=== PATIENT | male | born 1975 ===

== ENCOUNTER 2019-12-10 12:07 | Inpatient (IN) | payer SELFPAY ==
[~2019-12-10] VITALS: Ht 172.7 cm; Wt 173.2 kg
[2019-12-10] MEDS ORDERED: LORazepam 2 MG/ML, 1ML IVPush PRN (12:30)
[2019-12-10] MEDS ORDERED: SODIUM CHLORIDE FLUSH 10ML SYR IVF ONE (12:30)
--- NOTE | 2019-12-10 12:39 | NUR ---
BIB [facility] WITH COMPAINTS OF BLE CRAMPING THAT COME AND GO AND START FROM HIS FOOT UP TO HIS GROIN. NO HX BLOOD CLOTS OR GOUT. PT ALSO BEGAN HAVING CP APPROX 0400 THIS AM. PT RECIEVED ASA 324 SHIFT SUPERVISOR MELTING, FENTANYL 100MCG. PT TO CARD MONITOR, BP, CONT PULSE OX. ERMD IN TO EVAL PT. ORDERS RECIVED. PT ST ON MONITOR, REPORTS DRINKING 3 OR MORE BEERS PER DAY, LAST DRINK YESTERDAY EVENING. PT APPEARS ANXIOUS, NO TREMORS NOTED. PT DENIES N/V
[2019-12-10] MEDS ORDERED: LORazepam 2 MG/ML, 1ML ONE (12:48)
[2019-12-10 12:52] LABS: BASOPHILS % (AUTO) 1 % (0-1); EOSINOPHILS % (AUTO) 1 % (1-7); LYMPHOCYTES % (AUTO) 20 % (22-44); MEAN CORPUSCULAR HEMOGLOBIN 31.1 pg (27.5-34.5); MEAN CORPUSCULAR HGB CONC 33.1 g/dL (33.2-36.2); MEAN PLATELET VOLUME 9.4 fL (7.4-10.4); MONOCYTES % (AUTO) 7 % (2-9); NEUTROPHILS % (AUTO) 71 % (42-75); PLATELET COUNT 188 x10^3/uL (130-400); RED BLOOD COUNT 4.92 x10^6/uL (4.38-5.82); RED CELL DISTRIBUTION WIDTH 14.1 % (9.4-14.8)
[2019-12-10 12:57] LABS: MD NO
[2019-12-10 13:06] LABS: ALANINE AMINOTRANSFERASE 70 U/L (12-78); ALBUMIN 3.6 g/dL (3.4-5.0); ANION GAP 7 mmol/L (5-15); CALCIUM 8.5 mg/dL (8.5-10.1); CHLORIDE 105 mmol/L (98-107)
[2019-12-10 13:10] LABS: ALKALINE PHOSPHATASE 71 U/L (45-117); CREATININE 0.77 mg/dL (0.7-1.3); TOTAL PROTEIN 7.1 g/dL (6.4-8.2); TROPONIN I < 0.015 ng/mL (0.000-0.045)
[2019-12-10 13:31] LABS: FREE T4 (FREE THYROXINE) 1.08 ng/dL (0.76-1.46)
[2019-12-10] MEDS ORDERED: SODIUM CHLORIDE 0.9% 1,000ML IVBOLUS ONE (14:00)
--- NOTE | 2019-12-10 14:37 | NUR ---
PT RESTING ON GURNEY, VSS, BOLUS INFUSING SLOWLY D/T PIV ACCESS ERMD UPDATED. NO NEEDS AT THIS TIME
--- NOTE | 2019-12-10 15:46 | NUR ---
ERMD IN TO UPDATE PT ON POC. VSS, ADDITIONAL IMAGING TO BE ORDERED. NO OTHER NEEDS
[2019-12-10] MEDS ORDERED: MORPHINE SULFATE 4 MG/ML, 1ML ONE (16:06)
[2019-12-10] MEDS: MORPHINE SULFATE 4 MG/ML, 1ML IVPush PRN (16:09)
--- NOTE | 2019-12-10 16:10 | NUR ---
PT TO IMAGING AT THIS TIME
[2019-12-10] MEDS ORDERED: POTASSIUM CHLORIDE 20 MEQ TAB.ER.PRT PO ONE (17:30)
[2019-12-10] MEDS ORDERED: ENALAPRILAT 1.25 MG/ML, 2ML IVPush PRN (17:30)
[2019-12-10] MEDS ORDERED: ONDANSETRON 2MG/ML, 2ML IVPush PRN (17:30)
[2019-12-10] MEDS ORDERED: ACETAMINOPHEN 325 MG TABLET PO PRN (17:30)
[2019-12-10] MEDS ORDERED: FUROSEMIDE 40 MG/4 ML IV SCH (17:30)
[2019-12-10] MEDS ORDERED: CYCLOBENZAPRINE 10 MG TABLET PO PRN (17:30)
--- NOTE | 2019-12-10 17:32 | NUR ---
PLASTIC SURGERY ASSISTANT STATES PT MAY NOT BE ABLE TO FIT IN MRI MACHINE D/T WEIGHT. PT ALSO STATES HE WILL REQUIRE GEN ANESTHESIA, UNABLE TO JUST HAVE SEDATION. HOSPITALIST CALLED TO NOTIFY. MESSAGE LEFT FOR MD TO RETURN CALL. KAYLENED UPDATED WELL
--- NOTE | 2019-12-10 17:52 | NUR ---
CARDIAC RHYTHM STRIP PRINTED AND PLACED ON CHART.
[2019-12-10 18:02] LABS: TROPONIN I < 0.015 ng/mL (0.000-0.045)
--- NOTE | 2019-12-10 18:10 | NUR ---
PT MOVED TO HOSPITAL BED
--- NOTE | 2019-12-10 18:25 | NUR ---
REPORT GIVEN TO RECORTEGA OSHEA
[2019-12-10] MEDS ORDERED: ENOXAPARIN 30 MG/0.3 ML SQ SCH (20:00)
[2019-12-10 20:32] VITALS: BP 122/82
[2019-12-10] MEDS ORDERED: ENOXAPARIN 40 MG/0.4 ML ONE (21:00)
[2019-12-10] MEDS: morphine SULFATE 10 MG/ML, 1ML IVPush PRN (21:22)
[2019-12-10] MEDS: CARVEDILOL 3.125 MG TABLET PO SCH (21:22)
[2019-12-10 23:47] LABS: TROPONIN I < 0.015 ng/mL (0.000-0.045)
[2019-12-11] VITALS (7 sets, daily range): BP systolic 108–140; BP diastolic 76–85
[2019-12-11] MEDS: morphine SULFATE 10 MG/ML, 1ML IVPush PRN ×5 (01:26→20:51)
[2019-12-11] MEDS: ENOXAPARIN 30 MG/0.3 ML SQ SCH ×2 (01:27→12:58)
[2019-12-11] MEDS: OXYcodone IR 5MG TABLET PO PRN ×3 (04:18→14:06)
[2019-12-11 05:00] LABS: BASOPHILS % (AUTO) 1 % (0-1); EOSINOPHILS % (AUTO) 2 % (1-7); LYMPHOCYTES % (AUTO) 21 % (22-44); MEAN CORPUSCULAR HEMOGLOBIN 31.5 pg (27.5-34.5); MEAN CORPUSCULAR HGB CONC 33.4 g/dL (33.2-36.2); MEAN PLATELET VOLUME 9.3 fL (7.4-10.4); MONOCYTES % (AUTO) 7 % (2-9); NEUTROPHILS % (AUTO) 70 % (42-75); PLATELET COUNT 182 x10^3/uL (130-400); RED BLOOD COUNT 4.61 x10^6/uL (4.38-5.82); RED CELL DISTRIBUTION WIDTH 13.8 % (9.4-14.8)
[2019-12-11 05:19] LABS: ANION GAP 3 mmol/L (5-15); CALCIUM 8.2 mg/dL (8.5-10.1); CHLORIDE 105 mmol/L (98-107)
[2019-12-11 05:22] LABS: CHOL/HDL RATIO 4.4; CHOLESTEROL, TOTAL 211 mg/dL (140-239); CREATININE 0.79 mg/dL (0.7-1.3); HDL CHOL % 23 % (26-37); HDL CHOLESTEROL (DIRECT) 48 mg/dL (40-60); LDL CHOLESTEROL,CALCULATED 137 mg/dL (54-169); LDL/HDL RATIO 2.9 (0.5-3.0); TRIGLYCERIDES 128 mg/dL (50-200); VLDL CHOLESTEROL 26 mg/dL (0-25)
[2019-12-11 05:44] LABS: MD SCAN
[2019-12-11] MEDS: ASPIRIN 81 MG TABLET EC PO SCH (06:04)
[2019-12-11] MEDS: CARVEDILOL 3.125 MG TABLET PO SCH ×2 (06:05→17:13)
[2019-12-11] MEDS: SENNA/DOCUSATE TABLET PO SCH (08:20)
[2019-12-11] MEDS: MORPHINE SULFATE 4 MG/ML, 1ML IVPush PRN (09:33)
[2019-12-11] MEDS ORDERED: FENTANYL PF 100 MCG/2ML ONE (11:28)
[2019-12-11] MEDS ORDERED: MIDAZOLAM 1 MG/ML, 5ML ONE (11:28)
[2019-12-11] MEDS ORDERED: NALOXONE 1 MG/ML, 2ML ONE (11:28)
[2019-12-11] MEDS ORDERED: FLUMAZENIL 0.1 MG/1 ML, 5ML ONE (11:28)
[2019-12-11] MEDS ORDERED: OMNIPAQUE 350 MG/ML, 150 ML BOTTLE ONE (11:43)
[2019-12-11] MEDS: KETOROLAC 30 MG/1 ML IV PRN (12:25)
[2019-12-11] MEDS: GABAPENTIN 300 MG CAPSULE PO SCH ×3 (15:11→20:50)
[2019-12-11] MEDS: CYCLOBENZAPRINE 10 MG TABLET PO PRN (15:12)
[2019-12-12] MEDS: ENOXAPARIN 30 MG/0.3 ML SQ SCH ×3 (00:41→23:58)
[2019-12-12] MEDS: CYCLOBENZAPRINE 10 MG TABLET PO PRN (00:42)
[2019-12-12 01:40] VITALS: BP 133/84
[2019-12-12] MEDS: morphine SULFATE 10 MG/ML, 1ML IVPush PRN (03:08)
[2019-12-12 05:09] LABS: BASOPHILS % (AUTO) 1 % (0-1); EOSINOPHILS % (AUTO) 3 % (1-7); LYMPHOCYTES % (AUTO) 27 % (22-44); MEAN CORPUSCULAR HEMOGLOBIN 31.5 pg (27.5-34.5); MEAN CORPUSCULAR HGB CONC 33.1 g/dL (33.2-36.2); MEAN PLATELET VOLUME 9.7 fL (7.4-10.4); MONOCYTES % (AUTO) 7 % (2-9); NEUTROPHILS % (AUTO) 62 % (42-75); PLATELET COUNT 184 x10^3/uL (130-400); RED BLOOD COUNT 4.64 x10^6/uL (4.38-5.82); RED CELL DISTRIBUTION WIDTH 14.2 % (9.4-14.8)
[2019-12-12 05:11] LABS: HCT (SEDRATE) 43.9 % (39.2-51.8)
[2019-12-12 05:12] LABS: MD NO
[2019-12-12 05:24] LABS: ANION GAP 3 mmol/L (5-15); CALCIUM 8.4 mg/dL (8.5-10.1); CHLORIDE 105 mmol/L (98-107); CREATININE 0.83 mg/dL (0.7-1.3)
[2019-12-12 05:45] VITALS: BP 120/78
[2019-12-12] MEDS: ASPIRIN 81 MG TABLET EC PO SCH (05:48)
[2019-12-12] MEDS: CARVEDILOL 3.125 MG TABLET PO SCH ×2 (05:48→17:43)
[2019-12-12 06:55] LABS: C-REACTIVE PROTEIN, QUANT 0.74 mg/dL (0.02-0.49)
[2019-12-12 08:01] VITALS: BP 132/84
[2019-12-12] MEDS: KETOROLAC 30 MG/1 ML IV PRN ×3 (08:12→23:05)
[2019-12-12] MEDS: CYCLOBENZAPRINE 10 MG TABLET PO SCH ×3 (08:18→20:29)
[2019-12-12] MEDS: SENNA/DOCUSATE TABLET PO SCH (08:18)
[2019-12-12] MEDS: GABAPENTIN 300 MG CAPSULE PO SCH ×3 (08:18→20:29)
[2019-12-12] MEDS ORDERED: FENTANYL PF 100 MCG/2ML ONE (11:31)
[2019-12-12] MEDS ORDERED: LABETALOL 5MG/ML, 20ML ONE (15:55)
[2019-12-12 16:32] VITALS: BP 131/87
[2019-12-12] MEDS ORDERED: FLU VACC QS2020-21(6MOS UP)/PF 60MCG/0.5 ML SYR IM-VACC ONE (19:30)
[2019-12-12 20:21] VITALS: BP 124/87
[2019-12-13 01:04] VITALS: BP 129/86
[2019-12-13] MEDS: morphine SULFATE 10 MG/ML, 1ML IVPush PRN ×3 (03:30→17:42)
[2019-12-13 05:09] LABS: CALCIUM 8.8 mg/dL (8.5-10.1); CHLORIDE 106 mmol/L (98-107)
[2019-12-13 05:12] LABS: ANION GAP 4 mmol/L (5-15); CREATININE 0.78 mg/dL (0.7-1.3)
[2019-12-13] MEDS: CARVEDILOL 3.125 MG TABLET PO SCH ×2 (05:22→17:42)
[2019-12-13] MEDS: ASPIRIN 81 MG TABLET EC PO SCH (05:23)
[2019-12-13 06:37] VITALS: BP 119/77
[2019-12-13] MEDS: GABAPENTIN 300 MG CAPSULE PO SCH ×3 (08:52→20:21)
[2019-12-13] MEDS: SENNA/DOCUSATE TABLET PO SCH (08:52)
[2019-12-13] MEDS: CYCLOBENZAPRINE 10 MG TABLET PO SCH ×3 (08:52→20:21)
[2019-12-13] MEDS: KETOROLAC 30 MG/1 ML IV PRN (08:52)
[2019-12-13] MEDS: ENOXAPARIN 30 MG/0.3 ML SQ SCH ×2 (13:08→23:37)
[2019-12-13 13:47] VITALS: BP 123/72
[2019-12-13 20:24] VITALS: BP 124/85
[2019-12-13 23:42] VITALS: BP 141/100
[2019-12-14 00:12] VITALS: BP 141/100
[2019-12-14] MEDS: morphine SULFATE 10 MG/ML, 1ML IVPush PRN ×2 (03:52→10:46)
[2019-12-14 04:56] VITALS: BP 120/79
[2019-12-14] MEDS: ASPIRIN 81 MG TABLET EC PO SCH (05:00)
[2019-12-14] MEDS: CARVEDILOL 3.125 MG TABLET PO SCH ×2 (05:00→17:03)
[2019-12-14 06:30] VITALS: BP 127/82
[2019-12-14] MEDS: KETOROLAC 30 MG/1 ML IV PRN (08:23)
[2019-12-14] MEDS: GABAPENTIN 300 MG CAPSULE PO SCH ×3 (08:23→21:26)
[2019-12-14] MEDS: CYCLOBENZAPRINE 10 MG TABLET PO SCH ×3 (08:23→21:26)
[2019-12-14] MEDS: SENNA/DOCUSATE TABLET PO SCH (08:23)
[2019-12-14 13:23] VITALS: BP 123/83
[2019-12-14] MEDS: OXYcodone IR 5MG TABLET PO PRN ×2 (17:03→21:27)
[2019-12-14 18:44] VITALS: BP 140/85
[2019-12-15 00:23] VITALS: BP 129/89
[2019-12-15 05:43] VITALS: BP 127/81
[2019-12-15] MEDS: OXYcodone IR 5MG TABLET PO PRN ×2 (05:45→09:59)
[2019-12-15] MEDS: CARVEDILOL 3.125 MG TABLET PO SCH (05:45)
[2019-12-15 07:57] VITALS: BP 91/56
[2019-12-15] MEDS ORDERED: CYCL-259 PO (08:08)
[2019-12-15] MEDS ORDERED: POLY17PO5 PO (08:08)
[2019-12-15] MEDS ORDERED: Senna/Docusate PO (08:08)
[2019-12-15] MEDS ORDERED: OXYC5TAB3 PO (08:08)
[2019-12-15] MEDS ORDERED: GABA300C PO (08:08)
[2019-12-15] MEDS ORDERED: CARV3.1212 PO (08:08)
[2019-12-15] MEDS ORDERED: ASPI81TA45 PO (08:09)
[2019-12-15 08:15] VITALS: BP 132/88
[2019-12-15] MEDS: SENNA/DOCUSATE TABLET PO SCH (08:17)
[2019-12-15] MEDS: GABAPENTIN 300 MG CAPSULE PO SCH (08:17)
[2019-12-15] MEDS: CYCLOBENZAPRINE 10 MG TABLET PO SCH (08:17)
[2019-12-15] MEDS ORDERED: ONDA4TAB7 PO (08:27)
== END 2019-12-15 11:04 | disposition home or self-care (01) | DRG 552 ==
LOC: EDBD 12:07 → ED 13:35 → EDIP 16:36 → SUATTDRO 16:42 → 5SO 18:44 → DCLOUNGE 12-15 10:54
PROVIDERS: ADMIT Family Medicine; ATTEND Internal Medicine
DX: M54.16 Radiculopathy, lumbar region (principal); I50.32 Chronic diastolic (congestive) heart failure; Z68.43 Body mass index [BMI] 50.0-59.9, adult; E03.9 Hypothyroidism, unspecified; I11.0 Hypertensive heart disease with heart failure; G89.29 Other chronic pain; F40.240 Claustrophobia; E78.5 Hyperlipidemia, unspecified; E66.9 Obesity, unspecified; Z20.828 Contact with and (suspected) exposure to other viral communicable diseases; Z79.899 Other long term (current) drug therapy
CPT/HCPCS: 36415; 72110; C8929; 71045; 71275; 72157; 72158; 80048; 80053; 80061; 82607; 83036; 83735; 83880; 84100; 84439; 84443; 84484; 85025; 85651; 86140; 87635; 90686; 93005; 93970; G0378; J1650; J1885; J1940; J2250; J3010; Q9957; Q9967; J2060; J2270; J2310; J7030

== ENCOUNTER 2019-12-18 18:16 | Emergency (ER) | payer OTHER ==
[~2019-12-18] VITALS: Ht 172.7 cm; Wt 172.7 kg
[~2019-12-18 18:16] MED LIST: ASPI81TA45 PO; CARV3.1212 PO; CYCL-259 PO; GABA300C PO; ONDA4TAB7 PO; OXYC5TAB3 PO; POLY17PO5 PO; Senna/Docusate PO
--- NOTE | 2019-12-18 18:30 | NUR ---
PT BIB [facility] FROM HOME FOR C/O SUDDENT ONSET L ARM PAIN, L RIB PAIN, RADIATING DOWN TO L LEG, L SIDED NUMBNESS, AND SOB. 12-LEAD BY EMS UNREMARKABLE, SR 90s, 120/80, 99% ON RA. NO INTERVENTIONS DONE BY EMS. PT ARRIVES TO ED ANXIOUS, STATES, "SOMETHING'S HAPPENING! I THINK I'M HAVING A HEART ATTACK! IT'S GETTING WORSE!" PT REPORTS HE WAS RECENTLY HERE FOR LEG CRAMPING. EKG DONE AT IMMEDIATELY. PT REPORTS NUMBNESS TO L ARM AND EXTREME PAIN/SENSITIVITY TO LUE & LLE. NO UNILATERAL WEAKNESS NOTED OR OTHER ASYMMETRY.
--- NOTE | 2019-12-18 18:55 | NUR ---
ERP AT BS.
--- NOTE | 2019-12-18 19:00 | NUR ---
PT REPORTED TO ERP THAT HE USED METH RECENTLY.
[2019-12-18 19:32] LABS: RED BLOOD COUNT 4.76 x10^6/uL (4.38-5.82)
[2019-12-18 19:33] LABS: BASOPHILS % (AUTO) 1 % (0-1); EOSINOPHILS % (AUTO) 2 % (1-7); LYMPHOCYTES % (AUTO) 23 % (22-44); MEAN CORPUSCULAR HEMOGLOBIN 31.2 pg (27.5-34.5); MEAN CORPUSCULAR HGB CONC 33.2 g/dL (33.2-36.2); MEAN PLATELET VOLUME 9.2 fL (7.4-10.4); MONOCYTES % (AUTO) 6 % (2-9); NEUTROPHILS % (AUTO) 68 % (42-75); PLATELET COUNT 183 x10^3/uL (130-400); RED CELL DISTRIBUTION WIDTH 14.2 % (9.4-14.8)
[2019-12-18 19:34] LABS: ALANINE AMINOTRANSFERASE 73 U/L (12-78); ALBUMIN 3.5 g/dL (3.4-5.0); ANION GAP 6 mmol/L (5-15); CALCIUM 8.7 mg/dL (8.5-10.1); CHLORIDE 106 mmol/L (98-107); CREATININE 0.86 mg/dL (0.7-1.3)
[2019-12-18 19:35] LABS: MD NO
[2019-12-18 19:37] VITALS: BP 148/85
[2019-12-18 19:38] LABS: ALKALINE PHOSPHATASE 69 U/L (45-117); BILIRUBIN,TOTAL 0.9 mg/dL (0.2-1.0); TROPONIN I < 0.015 ng/mL (0.000-0.045)
[2019-12-18] MEDS ORDERED: ACETAMINOPHEN 500 MG TABLET ONE (19:55)
--- NOTE | 2019-12-18 19:59 | NUR ---
PT MEDICATED WITH TYLENOL FOR PAIN. STILL C/O NECK PAIN, ANXIOUS, MOANING.
[2019-12-18] MEDS ORDERED: ACETAMINOPHEN 500 MG TABLET PO ONE (20:00)
--- NOTE | 2019-12-18 20:06 | NUR ---
D/C INSTRUCTIONS & F/U APPT RV'WD WITH PT, HE VERBALIZES UNDERSTANDING. PT STATS HE'S ABLE TO GET HOME ON HIS OWN. AMBULATED OUT OF ED WITHOUT DIFFICULTY.
== END 2019-12-18 20:06 | disposition home or self-care (01) ==
LOC: ED 19:45
DX: F15.10 Other stimulant abuse, uncomplicated (principal); R07.89 Other chest pain; F41.9 Anxiety disorder, unspecified; R10.10 Upper abdominal pain, unspecified; R06.02 Shortness of breath; I11.0 Hypertensive heart disease with heart failure; I50.9 Heart failure, unspecified; E78.5 Hyperlipidemia, unspecified
CPT/HCPCS: 36415; 71045; 80053; 83605; 83690; 84484; 85025; 85379; 93005; 99285